=== PATIENT | male | born 1950 | race Caucasian/White ===

== ENCOUNTER 2019-02-06 16:32 | Inpatient (IN) | payer MEDICARE ==
[~2019-02-06] VITALS: Ht 182.9 cm; Wt 67.6 kg
[2019-02-06] MEDS ORDERED: ACETAMINOPHEN 325 MG TABLET PO PRN (17:30)
[2019-02-06] MEDS ORDERED: MAGNESIUM HYDROXIDE 30 ML LIQUID UDC PO PRN (17:30)
[2019-02-06] MEDS ORDERED: MAG HYDROX/AL HYDROX/SIMETH 30 ML LIQUID UDC PO PRN (17:30)
[2019-02-06] MEDS: LORAZEPAM 1 MG TABLET PO PRN ×2 (17:38→22:45)
[2019-02-06] MEDS ORDERED: LORAZEPAM 1 MG TABLET PO PRN (18:00)
[2019-02-06] MEDS: MULTIVITAMINS,THERAPEUTIC TABLET PO SCH (18:52)
[2019-02-06] MEDS: THIAMINE HCL 100 MG TABLET PO SCH (18:52)
[2019-02-06] MEDS: FOLIC ACID 1 MG TABLET PO SCH (18:52)
[2019-02-06 20:00] VITALS: BP 99/69
[2019-02-06] MEDS: TEMAZEPAM 7.5 MG CAPSULE PO PRN (21:43)
[2019-02-07] MEDS: LORAZEPAM 1 MG TABLET PO PRN ×4 (04:46→20:13)
[2019-02-07 07:30] VITALS: BP 105/71
[2019-02-07] MEDS: FOLIC ACID 1 MG TABLET PO SCH (08:41)
[2019-02-07] MEDS: NICOTINE 14 MG/24HR PATCH TD SCH (08:41)
[2019-02-07] MEDS: THIAMINE HCL 100 MG TABLET PO SCH (08:41)
[2019-02-07] MEDS: MULTIVITAMINS,THERAPEUTIC TABLET PO SCH (08:41)
[2019-02-07 15:57] VITALS: BP 112/68
[2019-02-07] MEDS: GABAPENTIN 300 MG CAPSULE PO SCH ×2 (16:50→20:13)
[2019-02-07 19:58] VITALS: BP 103/65
[2019-02-07] MEDS: TEMAZEPAM 7.5 MG CAPSULE PO PRN (21:11)
[2019-02-08] MEDS: LORAZEPAM 1 MG TABLET PO PRN ×5 (00:47→20:20)
[2019-02-08 08:00] VITALS: BP 98/67
[2019-02-08] MEDS: GABAPENTIN 300 MG CAPSULE PO SCH ×3 (08:06→20:20)
[2019-02-08] MEDS: MULTIVITAMINS,THERAPEUTIC TABLET PO SCH (08:06)
[2019-02-08] MEDS: FOLIC ACID 1 MG TABLET PO SCH (08:06)
[2019-02-08] MEDS: THIAMINE HCL 100 MG TABLET PO SCH (08:06)
[2019-02-08] MEDS: NICOTINE 14 MG/24HR PATCH TD SCH ×2 (08:13→09:22)
[2019-02-08] MEDS ORDERED: GABA600T PO (09:02)
[2019-02-08 15:55] VITALS: BP 100/58
[2019-02-08 20:33] VITALS: BP 99/66
[2019-02-08] MEDS: TEMAZEPAM 7.5 MG CAPSULE PO PRN (22:02)
[2019-02-09] MEDS: LORAZEPAM 1 MG TABLET PO PRN ×6 (01:05→21:40)
[2019-02-09 07:30] VITALS: BP 107/66
[2019-02-09] MEDS: FOLIC ACID 1 MG TABLET PO SCH (08:23)
[2019-02-09] MEDS: GABAPENTIN 300 MG CAPSULE PO SCH ×3 (08:23→21:38)
[2019-02-09] MEDS: MULTIVITAMINS,THERAPEUTIC TABLET PO SCH (08:24)
[2019-02-09] MEDS: THIAMINE HCL 100 MG TABLET PO SCH (08:24)
[2019-02-09] MEDS: NICOTINE 14 MG/24HR PATCH TD SCH (09:00)
[2019-02-09 16:00] VITALS: BP 96/62
[2019-02-09] MEDS: TEMAZEPAM 7.5 MG CAPSULE PO PRN (23:26)
[2019-02-10] MEDS: LORAZEPAM 1 MG TABLET PO PRN ×4 (04:44→20:19)
[2019-02-10 07:30] VITALS: BP 104/70
[2019-02-10] MEDS: FOLIC ACID 1 MG TABLET PO SCH (08:51)
[2019-02-10] MEDS: THIAMINE HCL 100 MG TABLET PO SCH (08:51)
[2019-02-10] MEDS: MULTIVITAMINS,THERAPEUTIC TABLET PO SCH (08:51)
[2019-02-10] MEDS: GABAPENTIN 300 MG CAPSULE PO SCH ×3 (08:51→20:58)
[2019-02-10] MEDS: NICOTINE 14 MG/24HR PATCH TD SCH (08:56)
[2019-02-10 15:59] VITALS: BP 97/61
[2019-02-10 20:20] VITALS: BP 102/72
[2019-02-10 20:52] VITALS: BP 91/48
[2019-02-10] MEDS: TEMAZEPAM 7.5 MG CAPSULE PO PRN (22:20)
[2019-02-11] MEDS: LORAZEPAM 1 MG TABLET PO PRN ×3 (01:30→11:22)
[2019-02-11 08:00] VITALS: BP 93/56
[2019-02-11] MEDS: GABAPENTIN 300 MG CAPSULE PO SCH ×3 (08:23→20:14)
[2019-02-11] MEDS: MULTIVITAMINS,THERAPEUTIC TABLET PO SCH (08:24)
[2019-02-11] MEDS: THIAMINE HCL 100 MG TABLET PO SCH (08:24)
[2019-02-11] MEDS: FOLIC ACID 1 MG TABLET PO SCH (08:24)
[2019-02-11] MEDS: NICOTINE 14 MG/24HR PATCH TD SCH (08:24)
[2019-02-11] MEDS ORDERED: LORAZEPAM 1 MG TABLET PO PRN (13:30)
[2019-02-11] MEDS: LORAZEPAM 0.5 MG TABLET PO PRN ×2 (15:16→20:22)
[2019-02-11 16:00] VITALS: BP 89/50
[2019-02-11 20:35] VITALS: BP 90/51
[2019-02-11] MEDS: TEMAZEPAM 7.5 MG CAPSULE PO PRN (22:56)
[2019-02-12] MEDS: LORAZEPAM 0.5 MG TABLET PO PRN ×3 (05:47→20:20)
[2019-02-12] MEDS ORDERED: LORAZEPAM 0.5 MG TABLET ONE (05:48)
[2019-02-12 07:30] VITALS: BP 100/70
[2019-02-12] MEDS: NICOTINE 14 MG/24HR PATCH TD SCH (08:17)
[2019-02-12] MEDS: THIAMINE HCL 100 MG TABLET PO SCH (08:17)
[2019-02-12] MEDS: FOLIC ACID 1 MG TABLET PO SCH (08:17)
[2019-02-12] MEDS: GABAPENTIN 300 MG CAPSULE PO SCH ×3 (08:17→20:20)
[2019-02-12] MEDS: MULTIVITAMINS,THERAPEUTIC TABLET PO SCH (08:17)
[2019-02-12 13:00] VITALS: BP 97/54
[2019-02-12 20:00] VITALS: BP 95/57
[2019-02-12] MEDS: TEMAZEPAM 7.5 MG CAPSULE PO PRN (22:03)
[2019-02-13] MEDS: LORAZEPAM 0.5 MG TABLET PO PRN (06:00)
[2019-02-13 07:30] VITALS: BP 102/77
[2019-02-13 07:33] LABS: BASOPHILS % (AUTO) 0.9 % (0.0-2.0); EOSINOPHILS # (AUTO) 0.2 K/uL (0.0-0.7); EOSINOPHILS % (AUTO) 3.7 % (0.0-7.0); HEMOGLOBIN 15.1 g/dL (12.5-16.3); LYMPHOCYTES # (AUTO) 1.9 K/uL (20.0-40.0); LYMPHOCYTES % (AUTO) 35.3 % (20.5-51.5); MEAN CORPUSCULAR HEMOGLOBIN 31.5 uug (23.8-33.4); MEAN CORPUSCULAR HGB CONC 34 g/dL (32.5-36.3); MEAN CORPUSCULAR VOLUME 91.9 fL (73.0-96.2); MONOCYTES # (AUTO) 0.5 K/uL (2.0-10.0); MONOCYTES % (AUTO) 10.4 % (0.0-11.0); NEUTROPHILS # (AUTO) 2.6 K/uL (1.8-8.9); NEUTROPHILS % (AUTO) 49.7 % (38.5-71.5); PLATELET COUNT (AUTO) 194 K/uL (152-348); RED BLOOD CELL COUNT(AUTO) 4.79 MIL/uL (4.06-5.63); WHITE BLOOD COUNT (AUTO) 5.3 K/uL (3.6-10.2)
[2019-02-13] MEDS: FOLIC ACID 1 MG TABLET PO SCH (08:05)
[2019-02-13] MEDS: GABAPENTIN 300 MG CAPSULE PO SCH (08:05)
[2019-02-13] MEDS: NICOTINE 14 MG/24HR PATCH TD SCH (08:05)
[2019-02-13] MEDS: THIAMINE HCL 100 MG TABLET PO SCH (08:05)
[2019-02-13] MEDS: MULTIVITAMINS,THERAPEUTIC TABLET PO SCH (08:05)
[2019-02-13 08:21] LABS: BILIRUBIN,TOTAL 0.7 mg/dL (0.2-1.0); CREATININE 1.1 mg/dL (0.6-1.3); MAGNESIUM 1.8 mg/dL (1.8-2.4); PHOSPHOROUS 2.9 mg/dL (2.5-4.9); POTASSIUM 4.4 mmol/L (3.5-5.1); TOTAL PROTEIN, SERUM 6.7 g/dL (6.4-8.2)
[2019-02-13 10:20] LABS: THYROID STIMULATING HORMONE 4.151 mIU/mL (0.358-3.740)
== END 2019-02-13 12:00 | disposition other institution (70) | DRG 885 ==
LOC: ER 16:34 → GPS 16:57
PROVIDERS: ADMIT Psychiatry & Neurology Psychiatry; ATTEND Internal Medicine
DX: F39 Unspecified mood [affective] disorder (principal); F10.229 Alcohol dependence with intoxication, unspecified; G92 Toxic encephalopathy; R45.851 Suicidal ideations; F10.239 Alcohol dependence with withdrawal, unspecified; Z91.5 Personal history of self-harm; Y90.9 Presence of alcohol in blood, level not specified; Z87.891 Personal history of nicotine dependence
CPT/HCPCS: 36415; 83735; 84100; 84443; 85025; A4663

== ENCOUNTER 2019-06-19 15:24 | Inpatient (IN) | payer MEDICARE, BC ==
[~2019-06-19] VITALS: Ht 182.9 cm; Wt 66.2 kg
[2019-06-19] MEDS ORDERED: CHLORDIAZEPOXIDE HCL 25 MG CAPSULE PO ONE (15:30)
[2019-06-19] MEDS ORDERED: CHLORDIAZEPOXIDE HCL 25 MG CAPSULE ONE (15:31)
[2019-06-19] MEDS ORDERED: KLONOPIN (15:45)
--- NOTE | 2019-06-19 16:11 | NUR ---
PATIENT WAS SEEN BY MD. PATIENT WAS VERY ANXIOUS UPON ARRIVAL TO ER. MED GIVEN ORDERED. SITTER AT BEDSIDE.
--- NOTE | 2019-06-19 16:12 | NUR ---
CALLED ART FROM CRISIS TEAM KIANNA ROMERO.
--- NOTE | 2019-06-19 16:41 | NUR ---
SPOKE TO ART FROM CRISIS TEAM WHO STATES JACQUELYN IS TRUCK SERVICE MANAGER (IT CHANGED) SO I CALLED AND LEFT A MESSAGE FOR HER. PATIENT ATE A SANDWICH AND DRANK SOME UICE. HE IS RESTING NOW. SITTER/OBSERVER AT BEDSIDE.
[2019-06-19] MEDS ORDERED: LORAZEPAM 1 MG TABLET ONE (16:57)
[2019-06-19] MEDS ORDERED: LORAZEPAM 0.5 MG TABLET PO ONE (17:00)
--- NOTE | 2019-06-19 17:01 | NUR ---
DIPIKA SUNN HERE TO SPEAK TO PATIENT.
--- NOTE | 2019-06-19 17:31 | NUR ---
REPORT GIVEN TO MICHAEL FROM U. PATIENT AWARE OF PENDING ADMISSION...
[2019-06-19] MEDS ORDERED: MAGNESIUM HYDROXIDE 30 ML LIQUID UDC PO PRN (17:45)
[2019-06-19] MEDS ORDERED: MAG HYDROX/AL HYDROX/SIMETH 30 ML LIQUID UDC PO PRN (17:45)
[2019-06-19] MEDS ORDERED: TEMAZEPAM 7.5 MG CAPSULE PO PRN ×2 (17:45→18:30)
--- NOTE | 2019-06-19 17:45 | NUR ---
GPS: Nursing Notes: Admission Notes: Patient is awake and responding to his name, A/Ox4, ambulatory, self care, cooperative with staff, depressed mood and anxious affect, denies any SI/HI, verbally leyda for safety, stated "It was a stupid joke.. I do not want to kill myself..", superficial behavior, guarded, admitted on Voluntary status, Dr. Osborne covering for Dr. Donahue notified, reoriented to the unit and admitting package given to patient
[2019-06-19 20:00] VITALS: BP 94/60
[2019-06-19] MEDS: TEMAZEPAM 15 MG CAPSULE PO PRN (20:01)
[2019-06-19] MEDS ORDERED: TEMAZEPAM 7.5 MG CAPSULE PO ONE (21:00)
[2019-06-19] MEDS: LORAZEPAM 1 MG TABLET PO PRN (22:05)
--- NOTE | 2019-06-19 22:05 | NUR ---
GPS: Pt.remains awake at this time despite having a total dose of Restoril 22.5 mg. Remains highly anxious and restless. Frequently needing re-direction and re-assurance from staff. Ativan 1mg given PO as requested by pt. Safe environment provided. Will continue to monitor. Continues to contract for safety.
[2019-06-19 23:49] VITALS: BP 94/60
[2019-06-20] MEDS: LORAZEPAM 1 MG TABLET PO PRN ×4 (02:06→16:36)
--- NOTE | 2019-06-20 06:23 | NUR ---
GPS: Continues to be anxious and restless. Frequently looking at the clock and waiting for his next available Ativan dose. Only slept 1.15 hrs. Re-directed and re-assured constantly. Denies wanting to hurt self. Will continue to monitor.
[2019-06-20 07:07] LABS: BILIRUBIN,TOTAL 1.8 mg/dL (0.2-1.0); CREATININE 0.9 mg/dL (0.6-1.3); TOTAL PROTEIN, SERUM 6.1 g/dL (6.4-8.2)
[2019-06-20 07:30] VITALS: BP 105/74
[2019-06-20] MEDS: ACETAMINOPHEN 325 MG TABLET PO PRN ×2 (07:42→16:36)
[2019-06-20 15:05] VITALS: BP 106/67
[2019-06-20] MEDS: GABAPENTIN 300 MG CAPSULE PO SCH (17:42)
[2019-06-20] MEDS ORDERED: CHLORDIAZEPOXIDE HCL 25 MG CAPSULE PO SCH ×2 (18:45→19:00)
[2019-06-20 19:52] VITALS: BP 95/69
[2019-06-20] MEDS: ATORVASTATIN 20 MG TABLET PO SCH (20:11)
[2019-06-20] MEDS: ESCITALOPRAM OXALATE 10 MG TABLET PO SCH (20:11)
[2019-06-21] MEDS: CHLORDIAZEPOXIDE HCL 25 MG CAPSULE PO SCH ×3 (06:11→21:06)
[2019-06-21 07:30] VITALS: BP 92/56
[2019-06-21] MEDS: GABAPENTIN 300 MG CAPSULE PO SCH ×3 (08:06→17:10)
--- NOTE | 2019-06-21 11:13 | NUR ---
Social Work Note/Initial discharge plan: Patient currently resides [place] [address] [place] [address] ([phone]). Patient lives alone at the moment as his recently moved out. Patient shared that he would like to go back home when he is ready for discharge. Egg Gatherer will work with patient, family, and MD to ensure a safe and proper discharge plan.
--- NOTE | 2019-06-21 11:29 | NUR ---
Social Work Note/Family Contact: Clay Roaster called patient's next of kin as listed his , Kacy Carlisle ([phone]) to collect collateral information and is awaiting a call back.
--- NOTE | 2019-06-21 12:41 | NUR ---
Social Work Note/Substance Abuse Intervention: SW conducted a brief substance abuse intervention with the patient regarding alcohol and drug abuse. Patient states he billingsley snot abuse substances and has been sober for "2 months", however according to the psychiatric hold, it is stated that the patient had been abusing alcohol and benzodiazepines. preparation room worker will be referring patient for inpatient residential treatment programs to [facility] ([phone]) and [facility] , as well as outpatient treatment programs for continuous follow up and psychiatrist referrals.
[2019-06-21 16:44] VITALS: BP 109/65
--- NOTE | 2019-06-21 17:57 | NUR ---
GPS: RECEIVED PATIENT AOX1-2,PATIENT COMPLIANT AND PREOCCUPIED WITH MEDICATION DOSE , DOSAGE AND SCHEDULE, PATIENT REMAINS ISOLATIVE AND WITHDRAWAN , TOOK NAPS MOST OF THE TIME , POOR INTAKE
[2019-06-21 20:41] VITALS: BP 99/70
[2019-06-21] MEDS: ATORVASTATIN 20 MG TABLET PO SCH (20:59)
[2019-06-21] MEDS: ESCITALOPRAM OXALATE 10 MG TABLET PO SCH (20:59)
[2019-06-21] MEDS: TEMAZEPAM 15 MG CAPSULE PO PRN (22:05)
--- NOTE | 2019-06-21 23:00 | NUR ---
receive dto care, lying in bed, but pleasant upon approach. denied SI, or desire to harm self. compliant with medications. remains focused on his librium dose, and when it is next due. PRN restoril was given at 2205. as of 2300, he appears to be asleep. no distress noted. will continue to monitor closely.
--- NOTE | 2019-06-22 06:10 | NUR ---
slept well. assisted with am care, and shower. no distress noted.
[2019-06-22] MEDS: CHLORDIAZEPOXIDE HCL 25 MG CAPSULE PO SCH ×2 (06:13→13:51)
[2019-06-22] MEDS: LORAZEPAM 1 MG TABLET PO PRN ×4 (06:56→20:21)
--- NOTE | 2019-06-22 06:56 | NUR ---
PRN ativan, given for anxiety.
[2019-06-22 06:59] LABS: *BILIRUBIN,URIN NEGATIVE (NEGATIVE); *BLOOD, URINE NEGATIVE (NEGATIVE); *CLARITY,URINE SLIGHTLY CLOUDY (CLEAR); *COLOR,URINE DARK YELLOW (YELLOW); *KETONES,URINE NEGATIVE (NEGATIVE); *UROBILINOGEN,URINE 0.2 E.U./dl (NORMAL); LEUKOCYTE ESTERASE ,URINE NEGATIVE (NEGATIVE); NITRITE, URINE NEGATIVE (NEGATIVE); PH,URINE 5.5 (5.0-8.0); UGLUCOSE NEGATIVE (NEGATIVE)
[2019-06-22 07:30] VITALS: BP 95/63
[2019-06-22 08:49] LABS: BACTERIA,URINE FEW /HPF (NONE SEEN); MUCUS,URINE FEW /LPF (0-FEW); RBC,URINE NONE SEEN /HPF (0-3); SQUAMOUS EPITHELIAL CELL,UR FEW /HPF (NONE SEEN); WBC,URINE NONE SEEN /HPF (0-3)
[2019-06-22] MEDS: GABAPENTIN 300 MG CAPSULE PO SCH ×3 (09:16→17:53)
--- NOTE | 2019-06-22 10:42 | NUR ---
Social Work Note/Individual Therapy: Television Reporter met with patient today for brief supportive counseling. Patient presented very anxious and shared his concerns about being in the hospital for long and wants to return home. Television Reporter helped patient in understanding why he is here and that it is for him to be safe and stabilized. Patient seemed to grasp the concept but did not want to accept it. Patient shared his concerns of not sleeping well even when taking his PRN medication. Television Reporter shared this information with Dr. Donahue who stated that the patient is currently detoxing from alcohol withdrawal.
[2019-06-22 16:00] VITALS: BP 105/56
[2019-06-22 20:05] VITALS: BP 107/75
[2019-06-22] MEDS: ATORVASTATIN 20 MG TABLET PO SCH (20:21)
[2019-06-22] MEDS: ESCITALOPRAM OXALATE 10 MG TABLET PO SCH (20:21)
[2019-06-22] MEDS: TEMAZEPAM 15 MG CAPSULE PO PRN (21:57)
--- NOTE | 2019-06-22 22:00 | NUR ---
received to care, watching tv in activity room. remains pleasant upon approach. continues to deny SI, or desire to hurt himself. no interactions noted with peers. continues to c/o severe anxiety, especially when told that the doctor decreased his librium dose to once per day. PRN ativan was given at 2020, with minimal effects. he then took PRN restoril for insomnia, at 2156. as of 2229, he appears to be asleep. no distress noted. will continue to monitor closely.
[2019-06-23] MEDS: LORAZEPAM 1 MG TABLET PO PRN ×4 (02:56→20:02)
--- NOTE | 2019-06-23 02:56 | NUR ---
PRN ativan, given for anxiety.
--- NOTE | 2019-06-23 06:00 | NUR ---
slept 7 hours total.
--- NOTE | 2019-06-23 07:27 | NUR ---
PRN ativan, given for anxiety.
[2019-06-23 07:30] VITALS: BP 91/61
[2019-06-23] MEDS: GABAPENTIN 300 MG CAPSULE PO SCH ×3 (08:51→20:02)
[2019-06-23] MEDS ORDERED: CHLORDIAZEPOXIDE HCL 25 MG CAPSULE PO SCH (09:00)
--- NOTE | 2019-06-23 09:34 | NUR ---
Social Work Note/Family contact: latex foam worker spoke with patient's Kacy Carlisle ([phone]) regarding the patient's current status. Kacy expressed she would ideally like the patient to go to a residential treatment program, however I explained to her that the patient is demanding to go home. Kacy shared that after his discharge from his previous hospitalization here, he checked himself out of [facility] ([phone]) where he was expected to check in for treatment by this automobile service writer's discharge plan. Singe Machine Operator informed Kacy that the patient has the rights and capabilities to refused any service we offer for him.
--- NOTE | 2019-06-23 09:51 | NUR ---
Social Work Note/Individual Therapy: galley worker met with patient today for supportive counseling. Patient was very anxious and anticipating his Probable Cause Hearing that is scheduled for 3pm today. Belt Loop Maker provided support and comfort for patient. Patient was adamant about going home when he is discharged. Belt Loop Maker discussed residential treatment programs but patient refused. galley worker will continue to work with patient to ensure a safe a proper discharge plan.
--- NOTE | 2019-06-23 10:34 | NUR ---
Social Work Note/Firearms Report (DOJ): Ripening Room Attendant completed and submitted a DPJ firearms report for 5250 grave disability certification. A copy of report has been placed in patient chart.
--- NOTE | 2019-06-23 11:56 | NUR ---
Social Work Note/PC Hearing notification: metal storage worker spoke with patient's Kacy Carlisle ([phone]) and left a voicemail regarding patient's probable cause hearing this afternoon.
[2019-06-23 17:40] VITALS: BP 93/56
[2019-06-23] MEDS: ESCITALOPRAM OXALATE 10 MG TABLET PO SCH (20:02)
[2019-06-23] MEDS: ATORVASTATIN 20 MG TABLET PO SCH (20:02)
[2019-06-23 21:00] VITALS: BP 106/70
[2019-06-23] MEDS: TEMAZEPAM 15 MG CAPSULE PO PRN (21:50)
--- NOTE | 2019-06-23 22:30 | NUR ---
received to care, watching tv in activity room. remains pleasant upon approach. continues to deny SI, or desire to hurt himself. no interactions noted with peers. PRN ativan was given at 2001, with minimal effects. he then took PRN restoril for insomnia, at 2149. as of 2229, he appears to be asleep. no distress noted. will continue to monitor closely.
--- NOTE | 2019-06-24 06:00 | NUR ---
slept 8.0 hours, total. continues to sleep. no distress noted.
[2019-06-24 07:30] VITALS: BP 97/65
[2019-06-24] MEDS: LORAZEPAM 1 MG TABLET PO PRN ×3 (07:35→18:45)
[2019-06-24] MEDS: GABAPENTIN 300 MG CAPSULE PO SCH ×3 (08:48→20:47)
[2019-06-24 16:00] VITALS: BP 88/72
[2019-06-24] MEDS: ESCITALOPRAM OXALATE 10 MG TABLET PO SCH (20:47)
[2019-06-24] MEDS: ATORVASTATIN 20 MG TABLET PO SCH (20:47)
[2019-06-24 20:55] VITALS: BP 106/61
[2019-06-24] MEDS: TEMAZEPAM 15 MG CAPSULE PO PRN (22:07)
[2019-06-25] MEDS: LORAZEPAM 1 MG TABLET PO PRN ×4 (06:37→20:59)
[2019-06-25 07:30] VITALS: BP 94/61
[2019-06-25] MEDS: GABAPENTIN 300 MG CAPSULE PO SCH ×3 (08:59→20:33)
--- NOTE | 2019-06-25 10:44 | NUR ---
REQUESTING FOR ATIVAN MEDICATED ORDERED MADE COMFORTABLE.
[2019-06-25 16:03] VITALS: BP 84/56
--- NOTE | 2019-06-25 18:01 | NUR ---
ATIVAN GIVEN X2 PER HIS REQUEST FOR ANXIETY AND EFFECTIVE AMBULATORY TO DESIRED DESTINATIONS WAS WATCHING TV FOR A WHILE COMPLIANT WITH MEDICATIONS AND CARE WILL CONTINUE TO OBSERVE AND PROVIDE SAFE AND THERAPEUTIC ENVIRONMENT AT ALL TIMES.
[2019-06-25] MEDS: ATORVASTATIN 20 MG TABLET PO SCH (20:33)
[2019-06-25] MEDS: ESCITALOPRAM OXALATE 10 MG TABLET PO SCH (20:33)
--- NOTE | 2019-06-25 21:02 | NUR ---
gps: patient c/o anxiety. ativan 1 mg po given.
--- NOTE | 2019-06-25 22:02 | NUR ---
GPS: PATIENT IS RESTING IN BED COMFORTABLY. PRN EFFECTIVE FOR AGITATION.
[2019-06-25] MEDS: TEMAZEPAM 15 MG CAPSULE PO PRN (22:35)
[2019-06-26] MEDS: LORAZEPAM 1 MG TABLET PO PRN ×2 (05:13→13:07)
--- NOTE | 2019-06-26 05:14 | NUR ---
GPS: PATIENT C/O ANXIETY. ATIVAN 1 MG PO GIVEN PER PATIENT REQUESTED.
--- NOTE | 2019-06-26 05:53 | NUR ---
GPS: Remain calm and cooperative. slept 6:15 hrs through the night after restoril given for sleep.
[2019-06-26 07:30] VITALS: BP 92/47
[2019-06-26] MEDS: GABAPENTIN 300 MG CAPSULE PO SCH ×2 (08:31→16:06)
--- NOTE | 2019-06-26 13:25 | NUR ---
Individual Therapy Note: Terminal Block Assembler met with patient today for supportive counseling. Patient is eager about discharging home and wants to leave today. Terminal Block Assembler worked with patient to remain calm and less anxious. Terminal Block Assembler followed up with Dr. Donahue who stated he will be meeting with the patient today and assess if patient is ready for discharge.
[2019-06-26] MEDS ORDERED: LORAZEPAM 1 MG TABLET PO PRN (15:30)
[2019-06-26 15:41] VITALS: BP 90/62
--- NOTE | 2019-06-26 15:56 | NUR ---
Discharge Note: Patient will be discharged back home today [address] [place] [address] ([phone]). Patients daughter Isabelle ([phone]) will be providing Uber transportation for the patient to be picked up at 5pm today. Patients , Kacy ([phone]) has been made aware of discharge plans. Patient is aware and agreeable with discharge plans. Patient is alert and oriented x4 and is able to plan for self-care. Patient denies suicidal or homicidal ideation. Patient will be following up with his primary physician Dr. Vern Quintanilla ([phone]) on Sunday June 30, 2019 at 12PM. Patient will also be following up with his psychiatrist Dr. Bryan Jerome ([phone]) and has an appointment scheduled on Thursday June 27, 2019 at 5:30pm. Patient was also provided with outpatient mental health referrals to [facility] ([phone]), [facility] ([phone]), and [facility] ([phone]. Patient was also provided with resources to residential treatment programs such as [facility] ([phone]), [facility] Detox/recovery program ([phone]), and [facility] ([phone]). Patient refused to go to a residential treatment program upon discharge, however, was given the above resources should he decide at a later date. Patient was also given mental health referrals to [facility] Crisis Line ([phone]), [place] [facility] ([phone]) and [facility] Substance Abuse Helpline ([phone]). Patient presented with relief at the time of his discharge. Patient presented with euthymic mood and congruent affect.
[2019-06-26] MEDS ORDERED: LORAZEPAM 0.5 MG TABLET PO PRN (16:00)
--- NOTE | 2019-06-26 17:30 | NUR ---
GPS: Nursing Notes: Discharge Notes: Patient is awake and responding to his name, cooperative with nursing care, compliant with his medications, following staff directions, A/Ox4, self care, ambulatory, denies any SI/HI, denies any AH/VH, denies any pain or discomfort, denies any SOB, [place] [address] [place] [address] , patients's daughter, Isabelle Carlisle was inform of discharge by social science professor, took all his belongings with him, transported home via [employer] transportation, arranged by his daughter. Patient will also be following up with his psychiatrist Dr. Bryan Jerome ([phone]) and has an appointment scheduled on Thursday June 27, 2019 at 5:30pm. Patient was also provided with outpatient mental health referrals to [facility] ([phone]), [facility] ([phone]), and [facility] ([phone]. Patient was also provided with resources to residential treatment programs such as [facility] ([phone]), [facility] Detox/recovery program ([phone]), and [facility] ([phone]). Patient refused to go to a residential treatment program upon discharge, however, was given the above resources should he decide at a later date. Patient was also given mental health referrals to [facility] Crisis Line ([phone]), [place] [facility] ([phone]) and [facility] Substance Abuse Helpline ([phone]). Patient presented with relief at the time of his discharge. Patient presented with euthymic mood and congruent affect.
--- NOTE | 2019-07-11 09:04 | NUR ---
Substance Abuse Follow Up: Firesetter conducted a follow up substance abuse intervention.
== END 2019-06-26 17:30 | disposition home or self-care (01) | DRG 885 ==
LOC: ER 15:25 → GPS 17:20
PROVIDERS: ADMIT Psychiatry & Neurology Psychiatry; ATTEND Nurse Practitioner Acute Care
DX: F33.2 Major depressive disorder, recurrent severe without psychotic features (principal); E44.1 Mild protein-calorie malnutrition; Z68.1 Body mass index [BMI] 19.9 or less, adult; F10.20 Alcohol dependence, uncomplicated; Y90.9 Presence of alcohol in blood, level not specified; E78.5 Hyperlipidemia, unspecified; Z63.5 Disruption of family by separation and divorce; Z87.891 Personal history of nicotine dependence; G62.9 Polyneuropathy, unspecified; R63.6 Underweight
CPT/HCPCS: 36415; 87086; A4663

== ENCOUNTER 2021-05-09 11:27 | Emergency (ER) | payer BC, MEDICARE ==
[~2021-05-09] VITALS: Ht 182.9 cm; Wt 74.8 kg
[2021-05-09] MEDS ORDERED: MORPHINE SULFATE 2 MG/1 ML DISP.SYRIN IM ONE ×3 (12:00→13:15)
[2021-05-09] MEDS ORDERED: MORPHINE SULFATE 2 MG/1 ML DISP.SYRIN ONE ×3 (12:21→13:17)
--- NOTE | 2021-05-09 12:32 | NUR ---
PT IS IN ROOM #2B. DR SABILLON EVALUATED THE PT.
[2021-05-09] MEDS ORDERED: OXYC-128 PO (14:07)
[2021-05-09] MEDS ORDERED: OXYCODONE/APAP 5-325 MG TABLET PO ONE (14:15)
[2021-05-09] MEDS ORDERED: OXYCODONE/APAP 5-325 MG TABLET ONE (14:22)
--- NOTE | 2021-05-09 14:25 | NUR ---
pt was d/c'D to home. d/c instructions given to the pt by dr mercado.
[2021-05-09 14:26] VITALS: BP 136/69
== END 2021-05-09 14:29 | disposition home or self-care (01) ==
LOC: ER 11:28
DX: S62.610A Displaced fracture of proximal phalanx of right index finger, initial encounter for closed fracture (principal); W01.0XXA Fall on same level from slipping, tripping and stumbling without subsequent striking against object, initial encounter; Y92.019 Unspecified place in single-family (private) house as the place of occurrence of the external cause; Z86.718 Personal history of other venous thrombosis and embolism
CPT/HCPCS: 29125; 73130; 96372 ×2; 99284; J2270 ×3; A4663

== ENCOUNTER 2022-04-07 17:11 | Inpatient (IN) | payer MEDICARE ==
[~2022-04-07] VITALS: Ht 182.9 cm; Wt 70.8 kg
[~2022-04-07 17:11] MED LIST: OXYC-128 PO
--- NOTE | 2022-04-07 17:14 | NUR ---
SBAR to primary RN Connie
[2022-04-07 17:37] LABS: HEMATOCRIT 47.9 % (36.7-47.1); MEAN CORPUSCULAR HEMOGLOBIN 29.3 uug (23.8-33.4); MEAN CORPUSCULAR VOLUME 86.3 fL (73.0-96.2); PLATELET COUNT (AUTO) 210 K/uL (152-348)
[2022-04-07 18:25] LABS: ALANINE AMINOTRANSFERASE 27 U/L (16-63); ALKALINE PHOSPHATASE 102 U/L (50-136); BILIRUBIN,TOTAL 0.2 mg/dL (0.2-1.0); CARBON DIOXIDE 18 mmol/L (21-32); CHLORIDE 107 mmol/L (98-107); POTASSIUM 4.1 mmol/L (3.5-5.1); TOTAL PROTEIN, SERUM 6.6 g/dL (6.4-8.2); UREA NITROGEN, BLOOD 10 mg/dL (7-18)
[2022-04-07 18:37] LABS: ASPARTATE AMINOTRANSFERASE 16 U/L (15-37); BILIRUBIN,DIRECT < 0.1 mg/dL (0.0-0.2); CREATININE 1.1 mg/dL (0.6-1.3); GLUCOSE 109 mg/dL (74-106)
[2022-04-07 18:39] LABS: ACETAMINOPHEN < 2.0 ug/mL (10-30)
[2022-04-07 18:44] LABS: *BILIRUBIN,URIN NEGATIVE (NEGATIVE); *BLOOD, URINE NEGATIVE (NEGATIVE); *CLARITY,URINE CLEAR (CLEAR); *COLOR,URINE YELLOW (YELLOW); *KETONES,URINE NEGATIVE (NEGATIVE); *UROBILINOGEN,URINE 0.2 E.U./dl (NORMAL); LEUKOCYTE ESTERASE ,URINE NEGATIVE (NEGATIVE); NITRITE, URINE NEGATIVE (NEGATIVE); PH,URINE 5.5 (5.0-8.0); UGLUCOSE NEGATIVE (NEGATIVE)
--- NOTE | 2022-04-07 18:46 | NUR ---
Frequent reminders were done by all ER staff. Redirection and reorientation were also done. Patient kept on yelling (e.g. to smoke cigarettes, to have bedside TV and his cellphone). Hot dinner tray was given.
[2022-04-07 18:48] LABS: ETHANOL 345 MG/DL (0-0)
--- NOTE | 2022-04-07 18:50 | NUR ---
Dr Bennett @bedside
[2022-04-07 18:52] LABS: *AMPHETAMINE, URINE NEGATIVE (NEGATIVE); *CANNABINOID, URINE NEGATIVE (NEGATIVE); *COCCAINE, URINE NEGATIVE (NEGATIVE); *OPIATE, URINE NEGATIVE (NEGATIVE); *PHENCYCLIDINE SCREEN,URINE NEGATIVE (NEGATIVE)
--- NOTE | 2022-04-07 19:24 | NUR ---
SBAR to 7pm staff nurse Arlyn and head charger Latrell.
[2022-04-07] MEDS ORDERED: diphenhydrAMINE 50 MG/1 ML VIAL IM ONE (19:45)
[2022-04-07] MEDS ORDERED: HALOPERIDOL LACTATE 5 MG/1 ML VIAL IM ONE ×2 (19:45→23:15)
[2022-04-07] MEDS ORDERED: diphenhydrAMINE 50 MG/1 ML VIAL ONE (19:51)
[2022-04-07] MEDS ORDERED: HALOPERIDOL LACTATE 5 MG/1 ML VIAL ONE ×2 (19:52→23:17)
[2022-04-07] MEDS ORDERED: LORAZEPAM 0.5 MG TABLET PO ONE ×3 (20:30→23:15)
[2022-04-07] MEDS ORDERED: LORAZEPAM 1 MG TABLET ONE ×3 (20:32→23:17)
--- NOTE | 2022-04-07 20:35 | NUR ---
Patient requesting ativan for anxiety. DR Bennett aware. Carried out order.
--- NOTE | 2022-04-08 01:45 | NUR ---
Patient awake, talking to self at times. No distress noted. 1:1 sitter at bedside.
--- NOTE | 2022-04-08 12:08 | NUR ---
Called report to Santiago MCKEON RN.
[2022-04-08 13:15] VITALS: BP 116/77
--- NOTE | 2022-04-08 13:15 | NUR ---
GPS: PT ADMITTED TO THE UNIT WHEELED BY DARCIE MERIDA RN. PT QUIET AND LOOKS DEPRESSED. PER 5150, PT WAS ADMITTED DUE TO DANGER TO SELF AND GRAVE DISABILITY. PER ADMISSION, PT WANTING TO KILL SELF, DRANK LARGE AMOUNT OF VODKA AND UNABLE TO PLAN FOR SELF CARE, AND LIGHTED A CIGARETTE ONTO COUCH THAT MAY CAUSE POSSIBLE FIRE. UPON FACE TO FACE INTERVIEW, PT ANSWERED QUESTION EASILY, ALERT AND ORIENTED X 3. PT DENIES SI/HI, ABLE TO CONTRACT FOR SAFETY. STATING THE HE HAD A DISAGREEMENT WITH HIS GRANDSON THAT LED TO THIS BIG PROBLEM. PT WAS GIVEN A SHOWER AND SKIN IS INTACT UPON ASSESSMENT. PT HAD MENTIONED THAT HE HAD A SURGERY ON RIGHT ARM AND CANNOT LIFT IT THAT MUCH. DENIES ANY PAIN OR DISCOMFORT AT THIS TIME. PER PT HE HAD COVID VACCINE MODERNA 2 DOSES AND FORGOT WHEN HE GOT IT. NOTIFIED JERRY (DAUGHTER) OF PT ADMISSION AND DAUGHTER REFUSED TO SPEAK WITH THE PT. PER PSYCHIATRIST, HE WILL EVALUATE THE PT TOMORROW.
[2022-04-08] MEDS ORDERED: MAG HYDROX/AL HYDROX/SIMETH 30 ML LIQUID UDC PO PRN (13:30)
[2022-04-08] MEDS ORDERED: MAGNESIUM HYDROXIDE 30 ML LIQUID UDC PO PRN (13:30)
[2022-04-08] MEDS ORDERED: ZOLPIDEM 5 MG TABLET PO PRN (13:30)
[2022-04-08] MEDS ORDERED: BLOOD SUGAR DIAGNOSTIC 1 EACH STRIP VI ONE (14:00)
[2022-04-08 17:06] VITALS: BP_SYST 116; BP_SYST 122; BP_DIAS 77
[2022-04-08] MEDS ORDERED: HYDR50CA5 PO (19:08)
[2022-04-08] MEDS ORDERED: TRAZ-257 PO (19:08)
[2022-04-08] MEDS ORDERED: DESV50TA PO (19:08)
[2022-04-08] MEDS ORDERED: PRAV40TA3 PO (19:08)
[2022-04-08 19:47] VITALS: BP 99/57
[2022-04-08] MEDS: ATORVASTATIN 10 MG TABLET PO SCH (20:51)
[2022-04-08] MEDS: LORAZEPAM 1 MG TABLET PO PRN (20:51)
[2022-04-08] MEDS: CHLORDIAZEPOXIDE HCL 25 MG CAPSULE PO PRN (20:51)
--- NOTE | 2022-04-09 05:46 | NUR ---
Patient is isolative and withdrawn. Denied SI and became irritated when spoken to. Answers were short. Medications provided d/t increase in anxiety and anger. Safety Stratiges are in place. The patient slept 7.45 hours last night. Refused snack and unwilling to come out of his room at this time.
[2022-04-09 07:30] VITALS: BP 111/73
[2022-04-09 07:54] LABS: HEMATOCRIT 40.3 % (36.7-47.1); MEAN CORPUSCULAR VOLUME 86.5 fL (73.0-96.2); PLATELET COUNT (AUTO) 169 K/uL (152-348)
[2022-04-09 09:44] LABS: CREATININE 1.2 mg/dL (0.6-1.3); POTASSIUM 3.6 mmol/L (3.5-5.1)
[2022-04-09 16:00] VITALS: BP 91/62
[2022-04-09] MEDS: VENLAFAXINE XR 150 MG CAP.SR.24H PO SCH (17:43)
[2022-04-09] MEDS: LORAZEPAM 1 MG TABLET PO PRN ×2 (17:43→22:31)
[2022-04-09 20:26] VITALS: BP 108/71
[2022-04-09] MEDS: ATORVASTATIN 10 MG TABLET PO SCH (20:26)
[2022-04-09] MEDS: ZOLPIDEM 5 MG TABLET PO SCH (20:26)
--- NOTE | 2022-04-10 03:59 | NUR ---
GPS NOTES: Received patient in his room, sleeping, easily arousable and responding to name. He is unkempt and depress looking. He is isolative, guarded and withdrawn. Only interacts when engaged. He denies SI, VH/AH. He is med compliant, he only comes out of his room x1 to ask for Prn Ativan. He slept mostly during shift w/ no distress. Frequent monitoring observed.
[2022-04-10 07:30] VITALS: BP 105/66
[2022-04-10] MEDS: ARIPIPRAZOLE 5 MG TABLET PO SCH (08:31)
[2022-04-10] MEDS: VENLAFAXINE XR 150 MG CAP.SR.24H PO SCH (08:31)
[2022-04-10] MEDS: LORAZEPAM 1 MG TABLET PO PRN (08:35)
--- NOTE | 2022-04-10 13:12 | NUR ---
MARILYN Family Contact: MARILYN contacted pt's daughter, Isabelle ([phone]) and left a voicemail for a call back regarding discussion about the pt and discharge plan.
[2022-04-10] MEDS: CHLORDIAZEPOXIDE HCL 25 MG CAPSULE PO SCH ×3 (14:07→21:03)
--- NOTE | 2022-04-10 14:20 | NUR ---
Initial Discharge Note: Patient currently resides at [address] [place] [address] in a one story house. Per patient he would like to be discharged back to his house. MARILYN will continue to work with patient, family, and MD to ensure a safe and proper discharge plan.
[2022-04-10 16:00] VITALS: BP 92/65
[2022-04-10 19:56] VITALS: BP 108/56
[2022-04-10] MEDS: ATORVASTATIN 10 MG TABLET PO SCH (21:03)
[2022-04-10] MEDS: ZOLPIDEM 5 MG TABLET PO SCH (21:05)
[2022-04-10] MEDS: CHLORDIAZEPOXIDE HCL 25 MG CAPSULE PO PRN (22:31)
[2022-04-11] MEDS: CHLORDIAZEPOXIDE HCL 25 MG CAPSULE PO PRN ×3 (04:37→23:42)
--- NOTE | 2022-04-11 04:42 | NUR ---
Received patient in his room with the lights off. This underwriter solicitation director encouraged patient to get up and out of bed d/t the fact he has been in his room all day and is withdrawn.The patient was and is anxious, requesting Librium multiple times during the night. The patient denies active SI and seems to have poor insight on his suicidal triggers and his drinking. Eventually , this patient did come out of room and watched TV for an hour . Safety Stratiges remain in place and this underwriter solicitation director continues to encourage the patient to verbalize his feeling and participate in the activities of the unit.
[2022-04-11 07:45] VITALS: BP 90/56
[2022-04-11] MEDS: ARIPIPRAZOLE 5 MG TABLET PO SCH (08:22)
[2022-04-11] MEDS: VENLAFAXINE XR 150 MG CAP.SR.24H PO SCH (08:22)
[2022-04-11] MEDS: CHLORDIAZEPOXIDE HCL 25 MG CAPSULE PO SCH ×4 (08:22→20:04)
[2022-04-11] MEDS: NICOTINE 21 MG/24HR PATCH TD SCH (08:24)
[2022-04-11 15:00] VITALS: BP 110/77
[2022-04-11] MEDS: ENSURE ENLIVE (VAN) 240 ML LIQUID PO SCH (16:17)
--- NOTE | 2022-04-11 17:41 | NUR ---
no acute distress noted, patient denied suicidal thoughts
[2022-04-11] MEDS: ACETAMINOPHEN 325 MG TABLET PO PRN (18:34)
[2022-04-11 20:00] VITALS: BP 124/71
[2022-04-11] MEDS: ATORVASTATIN 10 MG TABLET PO SCH (20:04)
[2022-04-11] MEDS: ZOLPIDEM 5 MG TABLET PO SCH (20:42)
--- NOTE | 2022-04-11 20:45 | NUR ---
RECEIVED PATIENT IN HIS ROOM SITTING IN HIS BED. PATIENT NOTED A/O X 3 ABLE TO VERBALIZED FEELINGS. HE IS NOTED PREOCCUPIED, ANXIOUS. HE APPEARS DEPRESSED. HE HAS POOR INSIGHT AND JUDGEMENT TO HIS ADMISSION TO [facility]. HE STATED, "I AM HERE BECAUSE MY DAUGHTER'S BOYFRIEND CALLED THE POLICE AND TOLD THEM THAT I SAID THAT I WANTED TO KILL MYSELF BUT THAT IS NOT TRUE. I WAS NOT DRINKING". HE IS NOTED FIXED ON MEDICATIONS. "I NEED PAIN MEDICATION". "I NEED ATIVAN". "I NEED SLEEPING PILL". "WHEN AM I DUE FOR ANOTHER MEDICATION". PATIENT NEEDS CONSTANT REDIRECTION AND REASSURANCE. PATIENT WAS ALSO NOTED HARD OF HEARING. PATIENT IS REASSURED FOR HIS SAFETY. SAFETY AND FALL PRECAUTIONS ARE IN PLACE. V/S ARE STABLE. PT IN NO DISTRESS. PO FLUIDS AND SNACKS WERE GIVEN, WILL CONTINUE TO MONITOR.
[2022-04-12] MEDS: CHLORDIAZEPOXIDE HCL 25 MG CAPSULE PO PRN (05:27)
--- NOTE | 2022-04-12 06:44 | NUR ---
PATIENT SLEPT FOR APPROX. 4.45 HRS THROUGH THE NIGHT. HE APPROACHED THE NURSING STATION FEW TIMES DURING THE NIGHT. HE KEPT ASKING FOR MULTIPLE MEDICATIONS, HE SAID, "I NEED PAIN MEDICATION FOR MY SHOULDER" WHEN OFFERED TYLENOL HE REFUSED, HE SAID, "I NEED SOMETHING STRONGER". HE ALSO ASKED FOR MORE SLEEPING MEDICATION AND HE ASKED FOR ATIVAN. PT REQUIRED MULTIPLE REDIRECTION AND REASSURANCES. PATIENT WAS REASSURED AND REDIRECTED. WILL CONTINUE TO MONITOR.
[2022-04-12 07:30] VITALS: BP 97/65
[2022-04-12] MEDS: CHLORDIAZEPOXIDE HCL 25 MG CAPSULE PO SCH ×3 (08:20→16:18)
[2022-04-12] MEDS: ARIPIPRAZOLE 5 MG TABLET PO SCH (08:21)
[2022-04-12] MEDS: ENSURE ENLIVE (VAN) 240 ML LIQUID PO SCH ×2 (08:22→16:18)
[2022-04-12] MEDS: NICOTINE 21 MG/24HR PATCH TD SCH (08:22)
[2022-04-12] MEDS: VENLAFAXINE XR 150 MG CAP.SR.24H PO SCH (08:24)
[2022-04-12] MEDS: ACETAMINOPHEN 325 MG TABLET PO PRN ×2 (10:59→18:37)
--- NOTE | 2022-04-12 14:48 | NUR ---
Received patient is AAO x4 flat affect feels hopeless and helpless ,very isolative no interaction with other peers.refused to attend in group activity .stay in his room and asked nurse to close door. compliant with all medication ,will continue close monitoring.
[2022-04-12 16:00] VITALS: BP 90/59
[2022-04-12 19:50] VITALS: BP 106/74
[2022-04-12] MEDS: ZOLPIDEM 5 MG TABLET PO SCH (20:44)
[2022-04-12] MEDS: ATORVASTATIN 10 MG TABLET PO SCH (20:44)
--- NOTE | 2022-04-12 20:45 | NUR ---
RECEIVED PATIENT IN HIS ROOM SITTING IN HIS BED. HE IS NOTED A/O X 3. HE IS NOTED FIXED ON LIBRIUM. PATIENT IS MEDICATION SEEKER. HE IS MANIPULATIVE WITH A POOR INSIGHT AND JUDGMENT TO THE REASON FOR HIS ADMISSION TO [facility]HU. HE MINIMIZED HIS SYMPTOMS. HE IS ANXIOUS ABOUT NOT ABLE TO SLEEP THROUGH THE NIGHT. HE REQUIRES REALITY CHECKS, MULTIPLE RE-DIRECTIONS AND REASSURANCES. HE APPEARS DEPRESSED; HOWEVER, HE DENIED SI/HI/VH/AH HE IS ABLE TO VERBALLY CFS. SAFETY AND FALL PRECAUTIONS ARE IN PLACE. HIS V/S ARE STABLE, HE IS IN NO DISTRESS. PO FLUIDS AND SNACKS WERE GIVEN. WILL CONTINUE TO MONITOR.
[2022-04-12] MEDS: HYDROXYZINE PAMOATE 25 MG CAPSULE PO PRN (23:14)
--- NOTE | 2022-04-13 06:44 | NUR ---
patient slept for approx 6.30 hrs through the night. He was noted less restless less demanding less anxious during the night. Will continue to monitor.
[2022-04-13 07:47] VITALS: BP 101/58
[2022-04-13] MEDS: CHLORDIAZEPOXIDE HCL 25 MG CAPSULE PO SCH ×3 (08:17→16:01)
[2022-04-13] MEDS: ARIPIPRAZOLE 5 MG TABLET PO SCH (08:17)
[2022-04-13] MEDS: VENLAFAXINE XR 150 MG CAP.SR.24H PO SCH (08:17)
[2022-04-13] MEDS: NICOTINE 21 MG/24HR PATCH TD SCH (08:18)
[2022-04-13] MEDS: ENSURE ENLIVE (VAN) 240 ML LIQUID PO SCH ×2 (08:18→16:02)
[2022-04-13] MEDS: HYDROXYZINE PAMOATE 25 MG CAPSULE PO PRN ×3 (09:21→23:47)
--- NOTE | 2022-04-13 11:20 | NUR ---
Clinical SW Note: Pt's compensation manager, Rosy ([phone]) contacted this database report writer and informed this database report writer of the severity of the pt's alcoholism. Rosy stated the pt has had a severe alcohol problem his entire life. Rosy verbalized that pt relapses often and discussed his hx with alcohol abuse and the treatment plans. Rosy stated that pt denies his alcohol use. Rosy informed this SW that he does not talk to any family and that the pt's children are no longer involved. Rosy stated pt may have the daughter, Isabelle [phone]) as the DPOA. Rosy expressed how vital it is for the pt to discharge to a substance use treatment center. This database report writer informed Rosy that this SW will communicate with the psychiatrist, Dr. Andrews and pt's daughter, Isabelle and update Rosy with further discharge planning information. SW stated this database report writer will complete a substance use intervention with the pt and provide resources as well. Rosy is aware and agreeable.
--- NOTE | 2022-04-13 13:57 | NUR ---
MARILYN Family Contact: SW contacted pt's daughter, Isabelle ([phone]) and left another voicemail for a call back regarding pt's safe discharge planning.
--- NOTE | 2022-04-13 15:36 | NUR ---
Received patient is AAO x4 flat affect feels hopeless and helpless ,very isolative no interaction with other peers.refused to attend in group activity .stay in his room most of time ,c/0 anxiety prn vistaril given as ordered. compliant with all medication ,will continue close monitoring.
[2022-04-13 17:21] VITALS: BP 110/77
[2022-04-13 19:42] VITALS: BP 99/67
[2022-04-13] MEDS: ATORVASTATIN 10 MG TABLET PO SCH (20:10)
--- NOTE | 2022-04-13 20:30 | NUR ---
RECEIVED PATIENT IN HIS ROOM SITTING IN HIS BED. HE IS NOTED A/O X 3. HE CONTINUE FIXED ON LIBRIUM AND OTHER PRN MEDICATIONS. HE APPEARS DEPRESSED. HE IS ANXIOUS HIS AFFECT IS BLUNTED. HE DENIED SI/HI/VH/AH HE IS ABLE TO VERBALLY CFS. HE REQUIRES CONSTANT REDIRECTION AND REASSURANCE. SAFETY AND FALL PRECAUTIONS ARE IN PLACE. HIS V/S ARE STABLE, HE IS IN NO DISTRESS. PO FLUIDS AND SNACKS WERE GIVEN. WILL CONTINUE TO MONITOR.
[2022-04-13] MEDS ORDERED: CHLORDIAZEPOXIDE HCL 25 MG CAPSULE PO SCH (21:00)
[2022-04-13] MEDS: ZOLPIDEM 5 MG TABLET PO SCH (21:17)
[2022-04-14 07:31] VITALS: BP 106/63
[2022-04-14] MEDS: ENSURE ENLIVE (VAN) 240 ML LIQUID PO SCH ×2 (08:37→17:50)
[2022-04-14] MEDS: VENLAFAXINE XR 150 MG CAP.SR.24H PO SCH (08:37)
[2022-04-14] MEDS: NICOTINE 21 MG/24HR PATCH TD SCH (08:37)
[2022-04-14] MEDS: ARIPIPRAZOLE 5 MG TABLET PO SCH (08:37)
--- NOTE | 2022-04-14 08:37 | NUR ---
Firearms Report: Well Drill Operator Helper Cable Tool completed and submitted a DOJ firearms report for 5150 a danger to himself and grave disability certifications. A copy of report has been placed in patient chart.
[2022-04-14] MEDS: HYDROXYZINE PAMOATE 25 MG CAPSULE PO PRN (08:46)
--- NOTE | 2022-04-14 09:06 | NUR ---
MARILYN Family Contact: SW contacted pt's daughter, Isabelle ([phone]) and left another voicemail for a call back to discuss the pt's discharge plan and additional questions.
[2022-04-14] MEDS: ACETAMINOPHEN 325 MG TABLET PO PRN (10:15)
--- NOTE | 2022-04-14 13:20 | NUR ---
MARILYN Family Contact: Pt's daughter, Isabelle ([phone]) returned this magnetic tape typewriter operator's call and confirmed with SW that the pt does not have a DPOA or conservator. Isabelle stated pt is self-responsible and from his . Isabelle stated pt has had a hx of alcohol abuse and relapses often. Isabelle is agreeable for pt to discharge to a [facility] facility or substance use treatment center upon discharge. Isabelle stated she would like to be informed for the pt's continuation of care and final discharge plan. MARILYN will continue to inform isabelle regarding further updates.
[2022-04-14] MEDS: THIAMINE HCL 100 MG TABLET PO SCH (14:37)
[2022-04-14] MEDS: FOLIC ACID 1 MG TABLET PO SCH (14:37)
[2022-04-14 15:46] VITALS: BP 93/61
[2022-04-14] MEDS: CHLORDIAZEPOXIDE HCL 25 MG CAPSULE PO SCH ×2 (15:50→21:12)
--- NOTE | 2022-04-14 17:51 | NUR ---
GPS: PT STAYS IN HIS ROOM MOST OF THE TIME, DEPRESSED AND WITHDRAWN. VISTARIL AND TYLENOL WAS REQUESTED THIS MORNING FOR PAIN. PT DILLON NEEDY AND DEMANDING. COMPLIANT WITH CARE AND MEDS. DENIES SI/HI. ENCOURAGED TO PARTICIPATE WITH GROUP THERAPY. WILL MONITOR PT
--- NOTE | 2022-04-14 17:56 | NUR ---
GPS: PSYCHIATRIST ORDERED LIBRIUM 50MG PO TID. CARRIED OUT AND PT MADE AWARE.
[2022-04-14 20:08] VITALS: BP 99/59
[2022-04-14] MEDS ORDERED: CHLORDIAZEPOXIDE HCL 25 MG CAPSULE PO SCH (21:00)
[2022-04-14] MEDS: ZOLPIDEM 5 MG TABLET PO SCH (21:11)
[2022-04-14] MEDS: ATORVASTATIN 10 MG TABLET PO SCH (21:11)
[2022-04-14 21:26] VITALS: BP 101/65
--- NOTE | 2022-04-14 22:19 | NUR ---
GPS: Pt.remains anxious,restless,depressed and isolative. Only comes out of his room when he wants his pills. Re-assured prn. List of his current meds.discussed with him by this investment underwriter. Safe environment provided. Will continue to monitor.
[2022-04-15 07:30] VITALS: BP 90/68
[2022-04-15] MEDS: ARIPIPRAZOLE 5 MG TABLET PO SCH (08:56)
[2022-04-15] MEDS: CHLORDIAZEPOXIDE HCL 25 MG CAPSULE PO SCH ×3 (08:56→18:13)
[2022-04-15] MEDS: ENSURE ENLIVE (VAN) 240 ML LIQUID PO SCH ×2 (08:57→18:13)
[2022-04-15] MEDS: FOLIC ACID 1 MG TABLET PO SCH (08:57)
[2022-04-15] MEDS: THIAMINE HCL 100 MG TABLET PO SCH (08:57)
[2022-04-15] MEDS: VENLAFAXINE XR 150 MG CAP.SR.24H PO SCH (08:57)
[2022-04-15] MEDS: NICOTINE 21 MG/24HR PATCH TD SCH (08:57)
[2022-04-15] MEDS: ACETAMINOPHEN 325 MG TABLET PO PRN (09:01)
[2022-04-15 16:00] VITALS: BP 126/78
[2022-04-15] MEDS ORDERED: HYDROXYZINE PAMOATE 25 MG CAPSULE PO PRN (17:00)
[2022-04-15] MEDS: IBUPROFEN 600 MG TABLET PO PRN (18:13)
--- NOTE | 2022-04-15 19:04 | NUR ---
GPS; PT REFUSED ATTENDING THE [facility] TODAY. PER REFEREE, PT WILL CONTINUE TO BE HOLD FOR DANDER TO SELF. PT HAD A VISITOR TODAY, SAKINA (SON IN LAW). PT SEEN WALKING ALONG THE HALLWAY BUT MOST OF THE TIME SEEN INSIDE THE ROOM RECEIVING CALLS. OVERHEARD PT TALKING TO A CARPET INSPECTOR.
[2022-04-15 20:19] VITALS: BP 101/70
[2022-04-15] MEDS: ZOLPIDEM 5 MG TABLET PO SCH (21:02)
[2022-04-15] MEDS: ATORVASTATIN 10 MG TABLET PO SCH (21:02)
[2022-04-16 07:30] VITALS: BP 118/69
[2022-04-16] MEDS: ENSURE ENLIVE (VAN) 240 ML LIQUID PO SCH ×2 (08:16→09:00)
[2022-04-16] MEDS: VENLAFAXINE XR 150 MG CAP.SR.24H PO SCH (08:59)
[2022-04-16] MEDS: ARIPIPRAZOLE 5 MG TABLET PO SCH (08:59)
[2022-04-16] MEDS: CHLORDIAZEPOXIDE HCL 25 MG CAPSULE PO SCH ×3 (08:59→16:26)
[2022-04-16] MEDS: NICOTINE 21 MG/24HR PATCH TD SCH (08:59)
[2022-04-16] MEDS: THIAMINE HCL 100 MG TABLET PO SCH (08:59)
[2022-04-16] MEDS: FOLIC ACID 1 MG TABLET PO SCH (09:02)
[2022-04-16 12:42] VITALS: BP 121/66
[2022-04-16] MEDS: IBUPROFEN 600 MG TABLET PO PRN (12:43)
[2022-04-16] MEDS: HYDROXYZINE PAMOATE 25 MG CAPSULE PO PRN ×2 (14:29→23:12)
--- NOTE | 2022-04-16 14:29 | NUR ---
patient c/o anxiety. Vistaril 25 mg po prn given per patient requested.
[2022-04-16 16:00] VITALS: BP 106/71
--- NOTE | 2022-04-16 16:58 | NUR ---
GPS: Remain cooperative with meds and care. occ gets anxious,restless and isolative. encouraged to ventilate feelings. Re-assured prn. Safe environment provided. Will continue to monitor. continue plan of care.
[2022-04-16 19:43] VITALS: BP 100/67
[2022-04-16] MEDS: ATORVASTATIN 10 MG TABLET PO SCH (20:42)
[2022-04-16] MEDS: ZOLPIDEM 5 MG TABLET PO SCH (20:42)
--- NOTE | 2022-04-16 20:46 | NUR ---
GPS: Anxious but re-directable. Re-assured prn. Denies SI. Med.compliant. Safety emphasized. Will continue to monitor.
[2022-04-17] MEDS: FOLIC ACID 1 MG TABLET PO SCH (08:23)
[2022-04-17] MEDS: NICOTINE 21 MG/24HR PATCH TD SCH (08:24)
[2022-04-17] MEDS: THIAMINE HCL 100 MG TABLET PO SCH (08:24)
[2022-04-17] MEDS: CHLORDIAZEPOXIDE HCL 25 MG CAPSULE PO SCH ×2 (08:24→12:28)
[2022-04-17] MEDS: ARIPIPRAZOLE 5 MG TABLET PO SCH (08:24)
[2022-04-17] MEDS: VENLAFAXINE XR 150 MG CAP.SR.24H PO SCH (08:24)
[2022-04-17] MEDS: ENSURE ENLIVE (VAN) 240 ML LIQUID PO SCH (08:25)
[2022-04-17 08:30] VITALS: BP 90/62
[2022-04-17] MEDS ORDERED: CHLORDIAZEPOXIDE HCL 25 MG CAPSULE PO SCH (09:00)
[2022-04-17] MEDS: IBUPROFEN 600 MG TABLET PO PRN (09:09)
--- NOTE | 2022-04-17 09:40 | NUR ---
MARILYN Discharge Note: Pt will be discharged to [facility] located at [address] [place] [phone] ([phone]) via pts family transportation, Rahul ([phone]) at 1PM. MARILYN spoke with admin coordinator, Dylon at the facility who states they are ready to accept the patient today. Pt is aware and agreeable with discharge plan. Pts daughter, Isabelle ([phone]) is aware and agreeable with the discharge plan. Pt is alert and oriented x4, is unable to plan for self-care at this time. However, pt is willing to accept care at the treatment center. Pt denies any suicidal or homicidal ideation. Pt will follow-up at the facility with psychiatrist, Dr. Renee [phone] and patients primary hot car charger. Pt will also follow-up with his outpatient therapist, Rosy Wayne([phone]). Pt presents with calm mood and congruent affect. MARILYN completed a substance use intervention with the pt and placed a copy in the chart. MARILYN provided substance abuse treatment centers for the pt and placed a copt in the patients chart: [facility] [address] [place] [address] ([phone]); [address] [address] ([phone]); [address] [address] ([phone]). PHARMACY: [facility] [address] [place], [place] [phone].
--- NOTE | 2022-04-17 14:35 | NUR ---
Discharged patient to [facility] via pts family transportation, Rahul at 1345 pm, patient in stable condition ,denies any pain or discomfort,vital sign stable. all personal belonging returned to patient. discharge instruction and prescription given to patient.
== END 2022-04-17 13:45 | disposition home or self-care (01) | DRG 885 ==
LOC: ER 17:11 → GPS 04-08 12:49
PROVIDERS: ADMIT Psychiatry & Neurology Psychiatry; ATTEND Registered Nurse
DX: F33.2 Major depressive disorder, recurrent severe without psychotic features (principal); F10.229 Alcohol dependence with intoxication, unspecified; R45.851 Suicidal ideations; F10.239 Alcohol dependence with withdrawal, unspecified; Y90.8 Blood alcohol level of 240 mg/100 ml or more; E78.5 Hyperlipidemia, unspecified; Z87.891 Personal history of nicotine dependence; Z20.822 Contact with and (suspected) exposure to COVID-19; Z91.81 History of falling
CPT/HCPCS: 36415; 85025; 93005; G0480; J1200; J1630

== ENCOUNTER 2022-05-23 18:06 | Emergency (ER) | payer MEDICARE, OTHER ==
[~2022-05-23] VITALS: Ht 182.9 cm; Wt 70.3 kg
[~2022-05-23 18:06] MED LIST changes: +HYDR50CA5 PO; +PRAV40TA3 PO
[2022-05-23] MEDS ORDERED: LIDOCAINE 1%-EPI 1:100,000 20 ML VIAL IJ ONE (20:15)
[2022-05-23] MEDS ORDERED: THIAMINE HCL 100 MG TABLET PO ONE (20:15)
[2022-05-23] MEDS ORDERED: CYANOCOBALAMIN 1,000 MCG TABLET ONE (20:24)
[2022-05-23] MEDS ORDERED: LIDOCAINE HCL 2% 20 ML VIAL ONE (20:24)
[2022-05-23 20:36] LABS: MEAN CORPUSCULAR VOLUME 85.9 fL (73.0-96.2); PLATELET COUNT (AUTO) 193 K/uL (152-348)
[2022-05-23 20:37] LABS: CREATININE 1.2 mg/dL (0.6-1.3); POTASSIUM 4.5 mmol/L (3.5-5.1)
[2022-05-23 20:43] LABS: BILIRUBIN,DIRECT 0.2 mg/dL (0.0-0.2); BILIRUBIN,TOTAL 0.4 mg/dL (0.2-1.0); TOTAL PROTEIN, SERUM 6.2 g/dL (6.4-8.2)
[2022-05-23] MEDS ORDERED: MAGNESIUM SULFATE/D5W 100 ML IV SCH (21:00)
[2022-05-23] MEDS ORDERED: MAGNESIUM SULFATE/D5W 0 ML ONE (21:07)
[2022-05-23] MEDS ORDERED: MAGNESIUM CHLORIDE 64 MG TABLET.SA PO SCH (21:15)
[2022-05-23] MEDS ORDERED: LIDOCAINE 1%-EPI 1:100,000 20 ML VIAL ONE (21:20)
[2022-05-23 22:19] VITALS: BP 132/75
== END 2022-05-23 22:22 | disposition home or self-care (01) ==
LOC: ER 18:09
DX: S09.90XA Unspecified injury of head, initial encounter (principal); W18.30XA Fall on same level, unspecified, initial encounter; Y92.019 Unspecified place in single-family (private) house as the place of occurrence of the external cause; F10.229 Alcohol dependence with intoxication, unspecified; Y90.6 Blood alcohol level of 120-199 mg/100 ml; S01.81XA Laceration without foreign body of other part of head, initial encounter; S05.42XA Penetrating wound of orbit with or without foreign body, left eye, initial encounter; E83.42 Hypomagnesemia; R74.01 Elevation of levels of liver transaminase levels; R94.31 Abnormal electrocardiogram [ECG] [EKG]; F39 Unspecified mood [affective] disorder
CPT/HCPCS: 80076; 80048; 83735; 85025; 93005; 99284; 80320; 80307; 12013; J3490; 36415; G0480; J3475